=== PATIENT | male | born 1960 | race Caucasian/White ===

== ENCOUNTER 2017-02-09 08:56 | Day surgery (SDC) | payer BC ==
[~2017-02-09] VITALS: Ht 185.4 cm; Wt 107.5 kg
--- NOTE | ~2017-02-09 | OR ---
PATIENT'S NAME: PRISCILLA COELHO [facility] AGE: 56 Y [address] ROOM: [place] [address] LOCATION: [facility] ADMIT DATE: 02/09/2017 OR/Procedure Report DISCHARGE DATE: FAMILY PHYSICIAN: Lobito Chowdhury MD ATTENDING PHYSICIAN: Kody Gilliam SURGEON: Kody Gilliam MD GEOTHERMAL INSTALLER: DATE OF PROCEDURE: 02/09/2017 PREOPERATIVE DIAGNOSES: 1. Cervical degenerative disk disease. 2. Cervical stenosis. 3. Cervicalgia. 4. Cervical radiculopathy. POSTOPERATIVE DIAGNOSES: 1. Cervical degenerative disk disease. 2. Cervical stenosis. 3. Cervicalgia. 4. Cervical radiculopathy. PROCEDURES PERFORMED: 1. Anterior cervical diskectomy and decompression, C3-4. 2. Anterior cervical diskectomy and decompression, C4-5. 3. Anterior cervical diskectomy and decompression, C5-6. 4. Anterior cervical fusion, C3-4 interspace. 5. Anterior cervical fusion, C4-5 interspace. 6. Anterior cervical fusion, C5-6 interspace. 7. Application of allograft structural bone, C3-4 interspace. 8. Application of allograft structural bone, C4-5 interspace. 9. Application of allograft structural bone, C5-6 interspace. 10. Application of plate screw construct fixation, cervical spine C3 to C6. MILLER HELPER DISTILLERY: DALE Bass ANESTHESIA: General. ESTIMATED BLOOD LOSS: 25 mL. COMPLICATIONS: None. SPECIMENS: None. FINDINGS: Degenerative changes with stenosis, C3 to C6. PATIENT'S NAME: PRISCILLA COELHO [facility] AGE: 56 Y [address] ROOM: [place] [address] LOCATION: [facility] ADMIT DATE: 02/09/2017 OR/Procedure Report DISCHARGE DATE: FAMILY PHYSICIAN: Lobito Chowdhury MD ATTENDING PHYSICIAN: Kody Gilliam INSTRUMENTATION USED: [place] Tempus anterior cervical plate screw construct and [employer] allograft bone. OPERATIVE INDICATIONS: The patient is a 56-year-old male whom I have followed for symptomatic cervical stenosis with radiculopathy. He had failed conservative treatment and was offered surgery in the form of cervical decompression and fusion procedure. After the details, risks, benefits, and options were explained, he freely consented to surgery. DESCRIPTION OF PROCEDURE: After the patient was correctly identified and the operative site initialed, he was taken back to the operating room and placed in the supine position. After general anesthesia was induced, he was placed in the supine position with all bony prominences well padded and protected. The neck was prepped and draped in the usual sterile fashion, and all bony prominences were well padded and protected. The neck was prepped and draped in the usual sterile fashion. Time-out was taken to verify the patient and procedure. 10 mL of 0.25% Marcaine with epinephrine was injected in line with the incision. A 10 blade was then used to make a transverse incision in Pretty lines overlying the operative levels through the anesthetized skin on the right side of the neck. Dissection was taken down through subcutaneous tissue with electrocautery. The platysma was opened in line with the incision, and the pretracheal layer and deep cervical fascia was opened and undermined cranially and caudally. Blunt dissection next brought us down onto the anterior margin of the spine. The prevertebral fascia was opened in the midline and dissected laterally including the longus colli to elevate on each side. A bent spinal needle was placed into the disk space and verified at C5- 6. After successful level identification, this disk was marked, as was C4-5 and C5-6. The disks were incised at each level and then debrided using pituitaries, curette, and Kerrison. The overhanging osteophytes off the cranial vertebral endplate were resected with a 3 mm Kerrison. The anterior osteophytes were smoothed with a Leksell rongeur. The disk was debrided back to the posterior longitudinal ligament, and curettes were used to debride it from the endplates. A fine 1-mm tipped Kerrison was used to resect the posterior annulus and ligament and decompress the cord and the nerve roots [id number]. After decompression was completed at each level, the endplates were gently burred and then rasped and prepared for fusion. Bone graft of the appropriate size was impacted in position at each level and recessed below the anterior vertebral margin. Weights were removed from the traction, and a 3- level plate of appropriate length was held in position, and variable angle 16 mm screws were placed at each level. The screws were locked to the plate using the integrated mechanism. The wound was irrigated and dried. There was no active bleeding. Final AP and lateral x-rays demonstrated good placement of the bone graft and plate and screw construct. The wound was irrigated and PATIENT'S NAME: PRISCILLA COELHO [facility] AGE: 56 Y [address] ROOM: [place] [address] LOCATION: [facility] ADMIT DATE: 02/09/2017 OR/Procedure Report DISCHARGE DATE: FAMILY PHYSICIAN: Lobito Chowdhury MD ATTENDING PHYSICIAN: Kody Gilliam. There was no bleeding. It was repaired in layers with 2-0 Vicryl on the platysma and 4-0 Monocryl on the skin. Sterile dressing was applied. The patient was awakened from anesthesia and taken to the recovery room in stable condition. The surgical instruments inspector was necessary in this procedure for evacuation of blood during decompression and assistance with placement of the bone graft for fusion and plate and screw instrumentation for stabilization. MD J LUIS AVALOS/modl /[id number] d: 02/09/171 t: 02/17/17 1433, OPERATIVE SUMMARY
--- NOTE | ~2017-02-09 | HP ---
PATIENT'S NAME: PRISCILLA COELHO [facility] AGE: 56 Y [address] ROOM: [place] [address] LOCATION: [facility] ADMIT DATE: 02/09/2017 History & Physical DISCHARGE DATE: FAMILY PHYSICIAN: Lobito Chowdhury MD ATTENDING PHYSICIAN: Kody Gilliam DATE OF SERVICE: CHIEF COMPLAINT: Neck pain. HISTORY OF PRESENT ILLNESS: Ryley is a 56-year-old white male, who was admitted to the care of Dr. Kody Gilliam today for degenerative disc disease at C5-C6 level with cervical radiculopathy, cervical stenosis and left arm paresthesia. He has undergone a successful neck surgery by the time I see him and I have been asked to follow him for his history of hypertension and for pain management. When I see him, he is postop, resting quietly. He says his pain controlled. No nausea or vomiting. No chest pain. No shortness of breath. CURRENT MEDICATIONS: 1. Lisinopril 40 mg a day. 2. Tylenol Extra Strength. ALLERGIES TO MEDICATION: No known drug allergies. SOCIAL HISTORY: Does not smoke. FAMILY HISTORY: No one in the family has had bleeding problems or problems with general anesthesia. PREVIOUS OPERATIONS: See Dr. Gilliam's note. REVIEW OF SYSTEMS: Positive for cervical disc disease, hypertension essential, previous left shoulder pain, low back pain. Does have a history of possibly sleep apnea. Otherwise, no history of recent chest pain, shortness of breath. LUNGS: Negative. GI: Negative. : Negative. PATIENT'S NAME: PRISCILLA COELHO [facility] AGE: 56 Y [address] ROOM: [address] [address] LOCATION: [facility] ADMIT DATE: 02/09/2017 History & Physical DISCHARGE DATE: FAMILY PHYSICIAN: Lobito Chowdhury MD ATTENDING PHYSICIAN: Kody Gilliam PHYSICAL EXAMINATION: GENERAL: Pleasant male who appears stated age with a neck collar on. He is oriented to person, place, and time. HEENT: Otherwise benign. NECK: Shows brace present. LUNGS: Clear. HEART: No murmur. ABDOMEN: Benign. EXTREMITIES: Remarkable NEUROLOGIC: Intact. ASSESSMENT: 1. Neck pain, [id number] secondary to cervical disc disease and spinal stenosis. 2. Hypertension, essential. PLAN: Follow daily. MD VINNY GUZMAN/jill /[id number] D: [id number] T: [id number] HISTORY & PHYSICAL
[~2017-02-09 08:56] MED LIST: ASPIRIN EC81 MG PO; CPAP INH; ONCE DAILY1 EACH PO; TYLENOL EXTRA500 MG PO; VITAMIN D2000 UNIT PO; VITAMIN E200 UNI2 PO; ZESTRIL40 MG PO
--- NOTE | 2017-02-09 16:54 | NUR ---
Significant Event: Came to floor at 1515 from PACU. Has R) anterior dressing to neck. Needs hard rigid collar on when out of bed.Toradol,Soma, and [place] given in PACU. Patient has not voided. Urinal at bedside. CSM WNL. VSS. 1L/O2. Has not been out of bed yet. Follow up:
--- NOTE | 2017-02-10 04:00 | NUR ---
Significant Event: A/O X 3. RIGID NECK COLLAR ON. NECK DRSGS DRY-INTACT. C/O SORE THROAT, HAS CHLORASEPTIC THROAT SPRAY AT BEDSIDE USE. PATIENT HAS USED. HAD NORCO TAB ONE THIS SHIFT FOR PAIN RATED 04/30 LATER 02/20/10. AMBULATED TO BR, AMBULATED IN HALLS WITH ONE ASSIST GAITBELT ON, RIGID NECK COLLAR ON, TOLERATED WELL. TAKES FLUIDS, NO NAUSEA. HAS THIGH HI DONNA HOSE ON AND CALF PNEUMATICS ON. DENIES NUMBNESS OR TINGLING TO UPPER OR LOWER EXTREMITIES. MOVES ALL EXTREMITIES. IV SALINE LOCKED 0005. USES INCENTIVE SPIROMETER 3500. Follow up:
--- NOTE | 2017-02-10 11:25 | NUR ---
Introduced self/role to patient. He lives in [place] with is Yodit. His brother is coming to get him and he is ready to go. Has no needs. Asked if he had to pay his co-pay before he left? Said no, we would bill that to him. Spoke to charge nurse Carol Ann about him being ready to go and family on their way, she stated she will work on him next then.
[2017-02-10] MEDS ORDERED: Norco PO (11:43)
[2017-02-10] MEDS ORDERED: NORCO 7.5-3251 EACH PO (11:45)
[2017-02-10] MEDS ORDERED: SOMA350 MG PO (11:46)
[2017-02-10] MEDS ORDERED: CHLORASEPTIC SP1 BOT PO (11:47)
--- NOTE | 2017-02-10 13:15 | NUR ---
D: PATIENT ALERT AND ORIENTED X3. CSM ASSESSMENTS WNL TO BILATERAL UPPER AND LOWER EXTREMITIES. GAUZE/TEGADERM DRESSING TO R) ANTERIOR NECK C/D/I. RIGID COLLAR IN PLACE. RATES NECK/THROAT PAIN 4-1 ON PAIN SCALE, PAIN WELL CONTROLLED WITH NORCO 1 TAB GIVEN AT 1315. BILATERAL THIGH HIGH DONNA HOSE AND CALF PUMPS ON. AMBULATES AD ROQUE, GAIT STEADY. VSS, AFEBRILE. DISCHARGE INSTRUCTIONS REVIEWED WITH PATIENT, VERBALIZES UNDERSTANDING. PATIENT DISMISSED TO HOME, ACCOMPANIED BY FRIEND. ASSISTED TO VEHICLE VIA AMBULATION, ACCOMPANIED BY THIS NURSE.
== END 2017-02-10 13:20 | disposition disaster alternative care site (69) ==
LOC: G3N 08:56 → GSDC 08:56 → G3N 14:54 → GSDC 02-10 13:20
PROC: 0RG20K0 Fusion of 2 or more Cervical Vertebral Joints with Nonautologous Tissue Substitute, Anterior Approach, Anterior Column, Open Approach (ICD-10-PCS; principal; 2017-02-09)
DX: M48.02 Spinal stenosis, cervical region (principal); M50.11 Cervical disc disorder with radiculopathy, high cervical region; M50.121 Cervical disc disorder at C4-C5 level with radiculopathy; M50.122 Cervical disc disorder at C5-C6 level with radiculopathy; G47.30 Sleep apnea, unspecified; Z90.49 Acquired absence of other specified parts of digestive tract; Z96.652 Presence of left artificial knee joint; Z98.890 Other specified postprocedural states; Z79.899 Other long term (current) drug therapy
CPT/HCPCS: C1713; J0131; J0690; J1100; J1170; J2001; J2250; J2405; J3480; J7030